=== PATIENT | female | born 1935 | race Caucasian/White ===

== ENCOUNTER → 2017-04-21 | Outpatient (CLI) | payer OTHER, BC ==
[~2017-04-21] MED LIST: ATOR-54 PO; LACT1CAP3 PO; LPR25 PO; VENL25TA2 PO
--- NOTE | 2017-04-21 11:38 | DIAGNOSTIC IMAGING REPORT ---
(CHEST) THORAX WITHOUT CT DOSE: 372.39 mGy.cm CLINICAL HISTORY: 81 years-old Female with NODULE. There is a follow-up exam. TECHNIQUE: Multiaxial CT images of the chest were performed without contrast. A dose lowering technique was utilized adhering to the principles of ALARA. COMPARISON: CT chest 08/17/2016. FINDINGS: No focal thyroid nodule. Surgical clips are seen within the right axillary region. A lower right axillary lymph node is seen, 7 x 6 mm, unchanged. No pathologic-appearing adenopathy about the chest. Calcified lymph nodes of the left hilar is seen compatible with prior granulomatous disease. Heart is normal in size with fibrofatty changes of the left ventricular apex suggesting prior myocardial infarction. Coronary arterial calcifications are present. Mild subsegmental subpleural reticulation involves the lungs bilaterally suggesting areas of scarring. The previously noted 8 mm solid noncalcified pulmonary nodule of the left lower lobe is again seen, unchanged in size and appearance measuring approximately 8 x 5 mm. Additionally, there is a 3 mm noncalcified pulmonary nodules in the superior segment lingula which was not definitely seen on comparison. There is a calcified granuloma the superior segment left lower lobe. No pneumothorax, pleural effusion or focal airspace consolidation. The central airways are patent. Prior cholecystectomy. Nodular thickening of the left renal gland is again seen. Postsurgical changes of the right breast are seen compatible with prior meniscectomy. The bones appear intact. Left shoulder arthroplasty noted. IMPRESSION: 1. 8 x 5 mm noncalcified pulmonary nodule of the left lower lobe appears unchanged in size and morphology from comparison study dated 08/17/2016. Follow-up according to the guidelines below recommended. 2. 3 mm noncalcified pulmonary nodule is seen within the inferior segment lingular. 3. Evidence of prior granulomatous disease. 4. Additional incidental findings as above. Please refer to below summary of Fleischner criteria recommendations for follow-up of incidental CT nodules (Jyame Caceres, Guidelines for management of small pulmonary nodules detected on CT scans: A statement from the Fleischner Society, Radiology 237: [phone].) SOLID NODULES Solitary nodule size: <6 mm * Low risk patients: no follow-up needed * high risk patients: optional CT at 12 months Solitary nodule size: 6-8 mm * Low risk patients: follow-up at 6-12 months, then consider further follow-up at 18-24 months * high risk patients: initial follow-up CT at 6-12 months and then at 18-24 months if no change Solitary nodule size: >8 mm * either low or high risk patients - consider follow-up CT at 3 months, and/or CT-PET, and/or biopsy Multiple nodules size: <6 mm * Low risk patients: no routine follow-up * high risk patients: optional CT at 12 months Multiple nodules size: 6-8 mm * Low risk patients: follow-up at 3-6 months, then consider further follow-up at 18-24 months * high risk patients: follow-up at 3-6 months, then at 18-24 months if no change Multiple nodules size: >8 mm * Low risk patients: follow-up at 3-6 months, then consider further follow-up at 18-24 months * high risk patients: follow-up at 3-6 months, then at 18-24 months if no change Note: newly detected indeterminate nodule in persons 35 years of age or older. * Low risk patients: minimal or absent history of smoking and/or other known risk factors * high risk patients: history of smoking or of other known risk factors (e.g. first degree relative with lung cancer, or exposure to asbestos, radon, uranium) * if a nodule up to 8 mm is partly solid or is ground glass further follow-up is required after 24 months to exclude possible slow growing adenocarcinoma ([facility]) SUBSOLID NODULES Solitary pure ground-glass nodule * nodule size <6 mm - no CT follow-up required * nodule size >=6 mm - follow-up CT at 6-12 months, then every 2 years until 5 years Solitary part-solid nodule * nodule size <6 mm - no CT follow-up required * nodule size >=6 mm - follow-up CT at 3-6 months. If unchanged, and solid component remains <6 mm, then annual follow-up for 5 years Multiple subsolid nodules * nodule size <6 mm - follow-up CT at 3-6 months, consider further follow-up at 2 and 4 years if stable * nodule size >=6 mm - follow-up CT at 3-6 months, subsequent management based on the most suspicious nodule(s) The above report was generated using voice recognition software. It may contain grammatical, syntax or spelling errors. Electronically signed by: Justin Arredondo M.D. 04/21/2017 11:37 AM Dictated Date/Time: 04/21/2017 11:29 AM
== END | disposition home or self-care (01) ==
LOC: C.CTS 10:26
PROVIDERS: ATTEND Internal Medicine Critical Care Medicine
DX: R91.1 Solitary pulmonary nodule (principal); R91.8 Other nonspecific abnormal finding of lung field

== ENCOUNTER → 2017-12-19 | Outpatient (CLI) | payer OTHER, BC ==
[2017-12-19 10:08] LABS: HEMOGLOBIN A1C 6.2 % (4.5-5.6)
[2017-12-19 10:09] LABS: BLOOD UREA NITROGEN 18 mg/dl (7-18); CALCIUM 9.1 mg/dl (8.5-10.1); CARBON DIOXIDE 26 mmol/L (21-32); CHOLESTEROL 214 mg/dl (0-200); CREATININE 0.85 mg/dl (0.60-1.20); GLUCOSE 146 mg/dl (70-99); POTASSIUM 4.2 mmol/L (3.5-5.1); SODIUM 137 mmol/L (136-145)
[2017-12-19 10:19] LABS: LDL CHOLESTEROL CALCULATED 97 mg/dl
== END | disposition home or self-care (01) ==
LOC: C.LABVPSUW 08:58
PROVIDERS: ATTEND Internal Medicine Critical Care Medicine
DX: I10 Essential (primary) hypertension (principal); E78.5 Hyperlipidemia, unspecified; E03.9 Hypothyroidism, unspecified; R73.9 Hyperglycemia, unspecified